=== PATIENT | male | born 1945 | race Caucasian/White ===

== ENCOUNTER 2020-10-03 02:00 | Emergency (ER) | payer MEDICARE, BC ==
--- NOTE | 2020-10-03 02:15 | EDM.PDOC ---
<Magnus Woods - Last Filed: 10/03/20 07:45> ED HPI GENERAL MEDICAL PROBLEM - General Chief Complaint: Respiratory Problem Stated Complaint: [facility] Time Seen by Provider: 10/03/20 02:05 - History of Present Illness INITIAL COMMENTS - FREE TEXT/NARRATIVE: 74-year-old male presents the emergency room with increasing shortness of breath. This is been going on for the last several days. The patient has not seen a doctor in a while. He has a significant history of heart failure atrial fibrillation he has a pacemaker in place and he is taking Pradaxa. The patient has a large abdominal mass that has been getting bigger the patient is not certain how long this is been there but it has been there for many months. The patient has marked swelling in both lower extremities and his left upper extremity. Patient denies chest pain or really significant abdominal pain. His abdominal masses prevented him from bending over taking care of his feet and properly caring for himself. - Related Data Allergies Allergy/AdvReac Type Severity Reaction Status Date / Time dofetilide Allergy Cannot Verified 10/03/20 02:08 Remember mepivacaine Allergy Cannot Verified 10/03/20 02:08 Remember Home Meds: Home Meds Dabigatran Etexilate Mesylate [Pradaxa] 150 mg PO BID 09/07/18 [History] Lisinopril 2.5 mg PO DAILY 09/07/18 [History] Omeprazole 20 mg PO DAILY 09/07/18 [History] Spironolactone [Aldactone] 12.5 mg PO DAILY 09/07/18 [History] carvediloL [Carvedilol] 25 mg PO BID 09/07/18 [History] Past Medical History HEENT History: Reports: Cataract Cardiovascular History: Reports: High Cholesterol, Hypertension, Pacemaker Other Cardiovascular History: defibrilator, hx mitral valve replacement Respiratory History: Reports: None Gastrointestinal History: Reports: GERD Other Gastrointestinal History: treated with medication Genitourinary History: Reports: None Musculoskeletal History: Reports: None Neurological History: Reports: None Psychiatric History: Reports: None Endocrine/Metabolic History: Reports: None Hematologic History: Reports: None Immunologic History: Reports: None Oncologic (Cancer) History: Reports: None Dermatologic History: Reports: None - Infectious Disease History Infectious Disease History: Reports: None - Past Surgical History Head Surgeries/Procedures: Reports: None HEENT Surgical History: Reports: None Cardiovascular Surgical History: Reports: AICD, Pacer, Valve Replacement Respiratory Surgical History: Reports: None GI Surgical History: Reports: None Male Surgical History: Reports: None Endocrine Surgical History: Reports: None Neurological Surgical History: Reports: None Musculoskeletal Surgical History: Reports: None Oncologic Surgical History: Reports: None Dermatological Surgical History: Reports: None Social & Family History - Caffeine Use Caffeine Use: Reports: Coffee, Tea ED ROS GENERAL - Review of Systems Review Of Systems: See Below Constitutional: Reports: Malaise, Weakness. Denies: No Symptoms, Fever, Chills HEENT: Reports: No Symptoms Respiratory: Reports: Shortness of Breath. Denies: Wheezing, Pleuritic Chest Pain, Cough, Sputum Cardiovascular: Reports: Edema. Denies: Chest Pain, Palpitations Endocrine: Reports: No Symptoms, Polyuria GI/Abdominal: Reports: Other (Swelling or mass-effect in abdomen). Denies: Constipation, Diarrhea, Nausea, Vomiting : Reports: No Symptoms Musculoskeletal: Reports: No Symptoms Skin: Reports: No Symptoms Neurological: Reports: No Symptoms Psychiatric: Reports: No Symptoms ED EXAM, GENERAL - Physical Exam Exam: See Below Exam Limited By: No Limitations General Appearance: Alert, No Apparent Distress, Cachetic Eye Exam: Bilateral Eye: Normal Inspection Ears: Normal External Exam, Normal Canal, Hearing Grossly Normal, Normal TMs Nose: Normal Inspection, Normal Mucosa, No Blood Throat/Mouth: Normal Teeth (He has most of his own teeth), Normal Oropharynx, Other (Ptosis is not dry) Head: Atraumatic, Normocephalic Neck: Other (Right sided neck vessels are bulging left-sided are not) Respiratory/Chest: No Respiratory Distress, Lungs Clear, Normal Breath Sounds Cardiovascular: No Murmur, Tachycardia, Irregularly Irregular, Other (Edema in his left upper extremity and bilateral lower extremities right upper extremity is spared) GI/Abdominal: Soft, Other (Urgent mass-effect in the abdomen does not favor ascites) Back Exam: No: CVA Tenderness (L), CVA Tenderness (R), Vertebral Tenderness Extremities: Other (Again edema in the left upper extremity and bilateral lower extremities lower extremity edema is pitting) Neurological: Alert, Oriented, Normal Cognition Psychiatric: Normal Affect, Normal Mood Course - Re-Assessments/Exams Free Text/Narrative Re-Assessment/Exam: 10/03/20 07:46 Had a long discussion about transferring him to another facility as we have no beds here and lasted. There were no beds in [place]. The patient would really like to see how diuresing does for him he has had out nearly 1100 cc. The swelling in his arm looks better. At this time is change of shift further care and disposition per Dr. Winston. Departure - Departure Disposition: DC/Tfer to [facility] Clinical Impression: Atrial fibrillation with rapid ventricular response, Congestive heart failure, Ascites - Discharge Information Referrals: PCP,Unknown [Ordering Only Provider] - Forms: ED Department Discharge Additional Instructions: Patient transferred to [facility] in [place] due to no beds available here in [place]. <Angel Winston - Last Filed: 10/03/20 18:21> ED HPI GENERAL MEDICAL PROBLEM - General Source of Information: Reports: Patient History Limitations: Reports: No Limitations Social & Family History - Living Situation & Occupation Living situation: Reports: Single Occupation: Retired ED EXAM, GENERAL - Physical Exam Respiratory/Chest: Decreased Breath Sounds Course - Vital Signs Last Recorded V/S: Last Vital Signs Temp 36.3 C 10/03/20 02:01 Pulse 129 H 10/03/20 08:58 Resp 20 10/03/20 08:58 BP 120/96 H 10/03/20 08:58 Pulse Ox 95 10/03/20 08:58 - Orders/Labs/Meds Orders: Active Orders 24 hr Category Date Time Status CULTURE BLOOD [BC] Stat Lab 10/03/20 04:30 Received CULTURE BLOOD [BC] Stat Lab 10/03/20 04:37 Results Blood Culture x2 Reflex Set [OM.PC] Stat Oth 10/03/20 04:13 Ordered Labs: Laboratory Tests 10/03/20 10/03/20 10/03/20 Range/Units 02:41 02:41 02:41 WBC 8.21 (4.23-9.07) K/mm3 RBC 3.55 L (4.63-6.08) M/mm3 Hgb 10.7 L (13.7-17.5) gm/dl Hct 35.9 L (40.1-51.0) % MCV 101.1 H D (79.0-92.2) fl MCH 30.1 (25.7-32.2) pg MCHC 29.8 L (32.2-35.5) g/dl RDW Std Deviation 58.5 H (35.1-43.9) fL Plt Count 216 (163-337) K/mm3 MPV 9.8 (9.4-12.3) fl Neut % (Auto) 81.8 H (34.0-67.9) % Lymph % (Auto) 8.9 L (21.8-53.1) % Pondera % (Auto) 7.7 (5.3-12.2) % Eos % (Auto) 1.2 (0.8-7.0) Baso % (Auto) 0.2 (0.1-1.2) % Neut # (Auto) 6.71 H (1.78-5.38) K/mm3 Lymph # (Auto) 0.73 L (1.32-3.57) K/mm3 [place] # (Auto) 0.63 (0.30-0.82) K/mm3 Eos # (Auto) 0.10 (0.04-0.54) K/mm3 Baso # (Auto) 0.02 (0.01-0.08) K/mm3 Manual Slide Review Abnormal smear PT 13.9 H (9.7-12.0) SECONDS INR 1.31 APTT 33.7 H (21.7-31.4) SECONDS Sodium 145 D (136-145) mEq/L Potassium 4.3 (3.5-5.1) mEq/L Chloride 109 H D (98-107) mEq/L Carbon Dioxide 26 (21-32) mEq/L Anion Gap 14.3 (5-15) BUN 24 H (7-18) mg/dL Creatinine 1.4 H (0.7-1.3) mg/dL Est Cr Clr Drug Dosing 29.70 mL/min Estimated GFR (MDRD) 50 (>60) mL/min BUN/Creatinine Ratio 17.1 (14-18) Glucose 131 H (83-115) mg/dL Calcium 8.8 (8.5-10.1) mg/dL Total Bilirubin 0.9 (0.2-1.0) mg/dL AST 28 (15-37) U/L ALT 31 (16-63) U/L Alkaline Phosphatase 94 (46-116) U/L Troponin I < 0.017 (0.00-0.056) ng/mL NT-Pro-B Natriuret Pep (0-125) pg/mL Total Protein 6.1 L (6.4-8.2) g/dl Albumin 2.9 L (3.4-5.0) g/dl Globulin 3.2 gm/dL Albumin/Globulin Ratio 0.9 L (1-2) Lipase 91 (73-393) U/L Urine Color (Yellow) Urine Appearance (Clear) Urine pH (5.0-8.0) Ur Specific Talcott (1.005-1.030) Urine Protein (Negative) Urine Glucose (UA) (Negative) Urine Ketones (Negative) Urine Occult Blood (Negative) Urine Nitrite (Negative) Urine Bilirubin (Negative) Urine Urobilinogen (0.2-1.0) Ur Leukocyte Esterase (Negative) U Hyaline Cast (Auto) (0-5) /lpf Urine RBC (0-5) /hpf Urine WBC (0-5) /hpf Ur Epithelial Cells (0-5) /hpf Amorphous Sediment (NOT SEEN) /hpf Urine Bacteria (FEW) /hpf Urine Mucus (FEW) /hpf SARS-CoV-2 RNA (CAR[place]TON) (NEGATIVE) 10/03/20 10/03/20 10/03/20 Range/Units 02:41 04:45 04:47 WBC (4.23-9.07) K/mm3 RBC (4.63-6.08) M/mm3 Hgb (13.7-17.5) gm/dl Hct (40.1-51.0) % MCV (79.0-92.2) fl MCH (25.7-32.2) pg MCHC (32.2-35.5) g/dl RDW Std Deviation (35.1-43.9) fL Plt Count (163-337) K/mm3 MPV (9.4-12.3) fl Neut % (Auto) (34.0-67.9) % Lymph % (Auto) (21.8-53.1) % Pondera % (Auto) (5.3-12.2) % Eos % (Auto) (0.8-7.0) Baso % (Auto) (0.1-1.2) % Neut # (Auto) (1.78-5.38) K/mm3 Lymph # (Auto) (1.32-3.57) K/mm3 [place] # (Auto) (0.30-0.82) K/mm3 Eos # (Auto) (0.04-0.54) K/mm3 Baso # (Auto) (0.01-0.08) K/mm3 Manual Slide Review PT (9.7-12.0) SECONDS INR APTT (21.7-31.4) SECONDS Sodium (136-145) mEq/L Potassium (3.5-5.1) mEq/L Chloride (98-107) mEq/L Carbon Dioxide (21-32) mEq/L Anion Gap (5-15) BUN (7-18) mg/dL Creatinine (0.7-1.3) mg/dL Est Cr Clr Drug Dosing mL/min Estimated GFR (MDRD) (>60) mL/min BUN/Creatinine Ratio (14-18) Glucose (83-115) mg/dL Calcium (8.5-10.1) mg/dL Total Bilirubin (0.2-1.0) mg/dL AST (15-37) U/L ALT (16-63) U/L Alkaline Phosphatase (46-116) U/L Troponin I (0.00-0.056) ng/mL NT-Pro-B Natriuret Pep 39482 H (0-125) pg/mL Total Protein (6.4-8.2) g/dl Albumin (3.4-5.0) g/dl Globulin gm/dL Albumin/Globulin Ratio (1-2) Lipase (73-393) U/L Urine Color Dark yellow (Yellow) Urine Appearance Clear (Clear) Urine pH 5.5 (5.0-8.0) Ur Specific Talcott > or = 1.030 (1.005-1.030) Urine Protein 3+ H (Negative) Urine Glucose (UA) Negative (Negative) Urine Ketones Trace H (Negative) Urine Occult Blood Negative (Negative) Urine Nitrite Negative (Negative) Urine Bilirubin Negative (Negative) Urine Urobilinogen 0.2 (0.2-1.0) Ur Leukocyte Esterase Negative (Negative) U Hyaline Cast (Auto) 30-40 H (0-5) /lpf Urine RBC 0-5 (0-5) /hpf Urine WBC Not seen (0-5) /hpf Ur Epithelial Cells Not seen (0-5) /hpf Amorphous Sediment Moderate H (NOT SEEN) /hpf Urine Bacteria Few (FEW) /hpf Urine Mucus Many H (FEW) /hpf SARS-CoV-2 RNA (CAR[place]) Negative (NEGATIVE) Meds: Medications Discontinued Medications Generic Name Dose Route Start Last Admin Trade Name Arnaudq PRN Reason Stop Dose Admin Diltiazem HCl 10 mg 10/03/20 09:36 10/03/20 09:49 Cardizem IVPUSH 10/03/20 09:37 10 mg ONETIME ONE Administration Furosemide 60 mg 10/03/20 04:10 10/03/20 04:42 Lasix IVPUSH 10/03/20 04:11 60 mg ONETIME ONE Administration Furosemide 60 mg 10/03/20 08:05 10/03/20 08:45 Lasix IVPUSH 10/03/20 08:06 60 mg NOW ONE Administration Ceftriaxone Sodium 1 gm/ 100 mls @ 200 mls/hr 10/03/20 04:15 10/03/20 04:46 Sodium Chloride IV 200 mls/hr Q24H ABDULLAHI Administration Doxycycline Hyclate 100 mg/ 100 mls @ 100 mls/hr 10/03/20 04:15 10/03/20 05:17 Sodium Chloride IV 10/03/20 05:14 100 mls/hr ONETIME ONE Administration Diltiazem HCl 100 mg/ Sodium 100 mls @ 5 mls/hr 10/03/20 09:45 10/03/20 09:49 Chloride IV 5 mg/hr TITRATE ABDULLAHI 5 mls/hr Administration Protocol 5 MG/HR Potassium Chloride 20 meq 10/03/20 08:06 10/03/20 08:47 Klor-Con M20 PO 10/03/20 08:07 20 meq ONETIME ONE Administration Spironolactone 25 mg 10/03/20 08:06 10/03/20 08:47 Aldactone PO 10/03/20 08:07 25 mg ONETIME ONE Administration - Radiology Interpretation Free Text/Narrative:: Care has been assumed from Dr. Woods at change of shift. Patient presents with dyspnea and increased swelling both lower extremities and left upper extremity. Clinically he has significant fluid retention due to congestive heart failure. CT of the abdomen reveals moderate bilateral pleural effusions. Patient's current diuretic consist only of Aldactone 12.5 mg a day. Patient had diuresis of approximately 1200 mils of fluid after Lasix 60 mg IV was given by Dr. Woods. Renal function is maintained with the BUN of 24 and a creatinine of 1.4 and a GFR of 50. BNP is elevated at 30,083. Ideally the patient should be admitted to the hospital but there is no beds available in [place] or [place] at this time. Plan I am going to repeat Lasix 60 mg IV now with 20 mg of potassium p.o. and Aldactone 25 mg p.o. - Re-Assessments/Exams Free Text/Narrative Re-Assessment/Exam: 10/03/20 09:04 patient is going to require hospitalization and no beds are going to be available here today after discussion with nursing staff. We were able to contact through the [address] [facility] in [place] and they potentially have a bed becoming available this afternoon. I did speak with Dr. Zapata very on-call hospitalist and he has accepted care of this patient. Fredrick the 1 call nurse will call back when a bed becomes available and then we will arrange transport. 10/03/20 09:37 patient's heart rate has gone up to the high 131 38-1 40. Going to give him 10 mg of None.IV bolus and then start him on an IV drip of Cardizem at 5 mg/h. I's ECG shows atrial fibrillation is an underlying rhythm I atrial fibrillation atrial flutter with a primary paced rhythm at 60/min. 10/03/20 10:48 heart rate is improved to 100-1 no 6/min. BP is [birth year]1971 O2 sats 97% on 2 L/min by nasal cannula. Cardiazem infusion at 5 mg/h at this time 10/03/20 11:13 heart rate is 105 with BP 124/71 sats of 94%. Departure - Departure Time of Disposition: 12:38 Condition: Fair - Discharge Information *PRESCRIPTION DRUG MONITORING PROGRAM REVIEWED*: Not Applicable *COPY OF PRESCRIPTION DRUG MONITORING REPORT IN PATIENT ERIN: Not Applicable Sepsis Event Note (ED) - Focused Exam Vital Signs: Vital Signs Pulse Resp BP Pulse Ox 10/03/20 08:58 129 H 20 120/96 H 95
[2020-10-03] MEDS ORDERED: Furosemide 20 MG/2 ML VIAL IVPUSH ONE (04:10)
[2020-10-03] MEDS ORDERED: Doxycycline 100 MG in Sodium Chloride 0.9% 100 ML IV ONE (04:15)
[2020-10-03] MEDS ORDERED: cefTRIAXone 1 GM in Sodium Chloride 0.9% 100 ML IV SCH (04:15)
[2020-10-03] MEDS ORDERED: Furosemide 40 MG/4 ML VIAL IVPUSH ONE (08:05)
[2020-10-03] MEDS ORDERED: Spironolactone 25 MG Tab PO ONE (08:06)
[2020-10-03] MEDS ORDERED: Potassium Chloride 20 MEQ Tab.ER PO ONE (08:06)
[2020-10-03 09:00] VITALS: BP 120/96; PULSE 129
[2020-10-03] MEDS ORDERED: Diltiazem 50 MG/10 ML SDV IVPUSH ONE (09:36)
[2020-10-03] MEDS ORDERED: Diltiazem 100 MG in Sodium Chloride 0.9% 100 ML IV SCH (09:45)
--- NOTE | 2020-10-03 10:49 | CR ---
"PROCEDURE INFORMATION: Exam: XR Chest, 1 View Exam date and time: 10/03/2020 2:32 AM Age: 74 years old Clinical indication: Mass, lump, or swelling in the chest and other: Tachycardia TECHNIQUE: Imaging protocol: XR of the chest Views: 1 view. COMPARISON: CR Chest 2V 08/14/2014 1:41 PM FINDINGS: Tubes, catheters and devices: LEFT subclavian cardiac pacer/AICD present. Overlying EKG leads. Patient is somewhat rotated to the left. Lungs: Bibasilar airspace consolidations, left greater than right associated hazy airspace opacities. Diminished lung volumes with hypoventilatory changes present with secondary crowding of bilateral perihilar and bibasilar bronchovascular markings. Chronic appearing bilateral lung parenchymal interstitial opacities present. Pleural space: No pneumothorax. Bilateral pleural effusions. Biapical pleural calcification Heart/Mediastinum: Patient is status post prior CABG procedure. Enlarged cardiac silhouette. No mediastinal mass. Left atrial clamp. Prosthetic cardiac valve. Vasculature: There is moderate central pulmonary vascular congestion with prominent mixed interstitial and vascular opacities. Bones/joints: Multilevel degenerative changes within spine. Senescent osseous changes. Osteopenia. No acute fracture or neoplastic osseous lesion. IMPRESSION: 1. Postoperative changes as above. 2. Bilateral pleural effusions with bibasilar pneumonia. 3. Hypoventilatory changes with moderate fluid overload. 4. Remainder of findings described as above. RILEY FREEDMAN | Final Radiology Report CONFIDENTIALITY STATEMENT This report is intended only for use by the referring physician, and only in accordance with law. If you received this in error, call [phone]. Page 2 of 2 Thank you for allowing us to participate in the care of your patient. Dictated and Authenticated by: Angel Lundberg MD 10/03/2020 5:11 AM Central Time ([place]) TANGELA"
--- NOTE | 2020-10-03 10:50 | CR ---
PROCEDURE INFORMATION: Exam: XR Abdomen, 1 View Exam date and time: 10/03/2020 2:34 AM Age: 74 years old Clinical indication: Mass, lump, or swelling; Upper TECHNIQUE: Imaging protocol: XR of the abdomen. Views: Frontal supine view of the abdomen. 1 View. COMPARISON: CR (AP, ABDOMEN, ) 01/10/2017 3:15 PM FINDINGS: Gastrointestinal tract: Possible colonic ileus. No bowel obstruction. No bowel wall pneumatosis. Intraperitoneal space: No pneumoperitoneum. Organs: No abnormal mass or organomegaly suspected. Bones/joints: Osteopenia. No acute fracture or neoplastic osseous lesion. IMPRESSION: 1. Possible colonic ileus. 2. Remainder of findings described as above. Thank you for allowing us to participate in the care of your patient. Dictated and Authenticated by: Angel Lundberg MD 10/03/2020 5:11 AM Central Time ([place]) TANGELA
--- NOTE | 2020-10-03 10:52 | CT ---
"Addendum created by Angel Gardner MD on 10/03/2020 7:36 AM Central Time ([place]): PROCEDURE INFORMATION: Exam: CT Abdomen And Pelvis Without Contrast Exam date and time: 10/03/2020 4:44 AM Age: 74 years old Clinical indication: Bloating; Shortness of breath; Patient HX: Swelling, SOB, abdominal distention, TECHNIQUE: Imaging protocol: Computed tomography of the abdomen and pelvis without contrast. Radiation optimization: All CT scans at this facility use at least one of these dose optimization techniques: automated exposure control; mA and/or kV adjustment per patient size (includes targeted exams where dose is matched to clinical indication); or iterative reconstruction. COMPARISON: CT Abdomen Pelvis w Cont 08/12/2014 5:12 PM FINDINGS: Limitations: Evaluation is somewhat limited by lack of IV contrast. Liver: Grossly unremarkable. Gallbladder and bile ducts: Stones are present in the gallbladder. There are probably also tiny stones in the common bile duct, without significant biliary ductal dilatation evident. Pancreas: Grossly unremarkable. Spleen: Grossly unremarkable. Adrenal glands: Normal. No mass. Kidneys and ureters: Grossly unremarkable. No hydronephrosis or renal or ureteral calculus. Stomach and bowel: The unopacified small bowel is not significantly distended to suggest obstruction. There is moderate gas and stool distention of much of the large bowel without obvious obstruction. Appendix: The appendix appears normal where at least partially visualized, and there is no inflammatory change in the region. Intraperitoneal space: There is no free air. Small free fluid is present in the pelvis. RILEY FREEDMAN | Final Radiology Report Page 2 of 3 Vasculature: The abdominal aorta is nonaneurysmal. Atherosclerotic vascular calcifications are noted. Lymph nodes: No gross pathologic lymphadenopathy. Urinary bladder: Grossly unremarkable. Reproductive: The prostate is mildly large, measuring 4.4 x 3.3 cm. Bones/joints: The bones again appear osteopenic. There is again multilevel vertebral body height loss, mild to moderate, similar at L4, L1, T12, T11 and T10, and also newly included at T9, T8 and T7. Soft tissues: There is mild subcutaneous edema over the bilateral flanks and buttocks, extending into the upper thighs. IMPRESSION: 1. Moderate gas and stool distention of much of the large bowel, without obvious obstruction, could reflect constipation or ileus. 2. Cholelithiasis with probable tiny stones in the common bile duct, without significant biliary ductal dilatation evident. Consider ultrasound. 3. Small free fluid in the pelvis, nonspecific. 4. Mild subcutaneous edema over the bilateral flanks and buttocks, extending into the upper thighs, also nonspecific. 5. Mild prostatomegaly. 6. Apparent osteopenia with multilevel vertebral body height loss, appears chronic. COMMENTS: See separate chest CT report for findings above the diaphragm. Addendum created by Angel Gardner MD on 10/03/2020 7:00 AM Central Time ([place]): Correction regarding IMPRESSION #1 which should read as follows: 1. LARGE bilateral pleural effusions with associated compression atelectasis. Initial Report created on 10/03/2020 6:57 AM Central Time ([place]): PROCEDURE INFORMATION: Exam: CT Chest Without Contrast Exam date and time: 10/03/2020 4:44 AM Age: 74 years old Clinical indication: Bloating; Shortness of breath; Patient HX: Swelling, SOB, abdominal distention, TECHNIQUE: Imaging protocol: Computed tomography of the chest without contrast. Radiation optimization: All CT scans at this facility use at least one of these dose optimization techniques: automated exposure control; mA and/or kV adjustment per patient size (includes targeted exams where dose is matched to clinical indication); or iterative reconstruction. COMPARISON: OT Chest 1V Frontal 10/03/2020 2:32 AM FINDINGS: Limitations: Evaluation is somewhat limited by lack of IV contrast. RILEY FREEDMAN | Final Radiology Report CONFIDENTIALITY STATEMENT This report is intended only for use by the referring physician, and only in accordance with law. If you received this in error, call [phone]. Page 3 of 3 Tubes, catheters and devices: A left-sided pacemaker is again present. Lungs: There is considerable compression atelectasis involving the left more than right lower lobes with probable areas of airspace consolidation. Patchy ground-glass and airspace opacities are also present in the bilateral upper lobes. Pleural space: There are large bilateral pleural effusions. No pneumothorax. Heart: Coronary artery calcifications are noted. No significant pericardial effusion. The heart is large. There is again an atrial appendage clip, along with a mitral valve prosthesis. Aorta: The thoracic aorta is nonaneurysmal. Atherosclerotic vascular calcifications are noted. Lymph nodes: No gross pathologic lymphadenopathy. Bones/joints: Median sternotomy wires are again present. Degenerative changes again involve the spine and shoulders. Soft tissues: Unremarkable. IMPRESSION: 1. Moderate bilateral pleural effusions with associated compression atelectasis. 2. Probable areas of airspace consolidation in the lower lobes with patchy ground-glass and airspace opacities in the upper lobes, suggesting multifocal pneumonia. 3. Cardiomegaly. COMMENTS: Dedicated abdominal CT has been performed, and findings below the diaphragm will be reported separately. Thank you for allowing us to participate in the care of your patient. Dictated and Authenticated by: Angel Gardner MD 10/03/2020 6:57 AM Central Time ([place]) [facility]"
== END 2020-10-03 12:30 ==
LOC: JD.ED 02:00 → SUPCPDRO 02:00 → JD.ED 12:30
DX: I48.91 Unspecified atrial fibrillation (principal); I11.0 Hypertensive heart disease with heart failure; I50.9 Heart failure, unspecified; K21.9 Gastro-esophageal reflux disease without esophagitis; R18.8 Other ascites; Z88.8 Allergy status to other drugs, medicaments and biological substances; Z88.4 Allergy status to anesthetic agent; Z79.899 Other long term (current) drug therapy; Z20.828 Contact with and (suspected) exposure to other viral communicable diseases
CPT/HCPCS: 36415; 71045; 71250; 74018; 74176; 80053; 81001; 83690; 83880; 84484; 85025; 85610; 85730; 87040; 93005; 96365; 96366; 96367; 96375; 96376; 99285; A9270; J0696; J1940; J3490; J7050; U0002

== ENCOUNTER 2023-03-03 19:10 | Emergency (ER) | payer MEDICARE, BC ==
[2023-03-03 19:24] VITALS: BP 120/88; PULSE 97
[2023-03-03] MEDS ORDERED: Norepinephrine 4 MG in Dextrose 5% in Water 246 ML IV SCH ×2 (19:45)
[2023-03-03] MEDS ORDERED: Sodium Bicarbonate 8.4% 50 MEQ/50 ML SDV ONE (19:56)
[2023-03-03] MEDS ORDERED: Sodium Bicarbonate 8.4% 50 MEQ/50 ML Syringe IVPUSH ONE (20:03)
[2023-03-03] MEDS ORDERED: Lactated Ringers 1,000 ML IV ONE ×2 (20:07→20:16)
[2023-03-03] MEDS ORDERED: EPINEPHrine 1:10,000 1 MG/10 ML Syringe IVPUSH ONE ×4 (20:34→21:00)
[2023-03-03] MEDS ORDERED: fentaNYL 100 MCG/2 ML SDV IVPUSH ONE (21:13)
[2023-03-03] MEDS ORDERED: fentaNYL 100 MCG/2 ML SDV ONE (21:15)
[2023-03-03] MEDS ORDERED: fentaNYL 100 MCG/2 ML SDV IVPUSH PRN (21:27)
== END 2023-03-03 23:46 | disposition expired ==
LOC: JD.ED 19:10
DX: I46.9 Cardiac arrest, cause unspecified (principal); K21.9 Gastro-esophageal reflux disease without esophagitis; I10 Essential (primary) hypertension; Z88.8 Allergy status to other drugs, medicaments and biological substances; Z79.899 Other long term (current) drug therapy
CPT/HCPCS: 36415; 36600; 71045; 74018; 80053; 82803; 84484; 85025; 85610; 85730; 92950; 93005; 96365; 96366; 96375; 99285; J0171; J3010; J7060; J7120; 93010; J3490